=== PATIENT | male | born 1975 | race African-American/Black ===

== ENCOUNTER 2021-01-04 19:27 | Inpatient (IN) | payer OTHER ==
[~2021-01-04 19:27] MED LIST: Iopamidol-370 76% 500 ML 1 ML ONE
[2021-01-04] MEDS ORDERED: Aspirin 325 MG TAB ONE (19:58)
[2021-01-04 20:01] LABS: Hemoglobin 13.9 g/dL (14.0-18.0); Mean Corpuscular HGB CONC 34.4 g/dL (32.0-36.0); Mean Corpuscular Hemoglobin 31.3 pg (27.0-31.0); Mean Corpuscular Volume 91.1 fL (78.0-98.0); RBC Distribution Width 12.9 % (11.5-14.5); Red Blood Cell (RBC) Count 4.44 mill/uL (4.70-6.10)
[2021-01-04 20:08] LABS: PTT 28.1 sec (22.9-36.1); Prothrombin Time 13.5 sec (12.0-14.7)
[2021-01-04 20:18] LABS: ALT (SGPT) 21 U/L (8-55); AST (SGOT) 32 U/L (5-34); Albumin 4.2 g/dL (3.5-5.0); Alkaline Phosphatase 61 U/L (40-110); Anion Gap 23 mmol/L (10-20); BUN (Urea Nitrogen) 15 mg/dL (8.9-20.6); Bilirubin, Total 0.3 mg/dL (0.2-1.2); Calc. Creatinine Clearance 0 mL/min (70-130); Calcium 8.9 mg/dL (7.8-10.44); Carbon Dioxide 12 mmol/L (22-29); Chloride 106 mmol/L (98-107); Globulin 3.6 g/dL (2.4-3.5); Glucose 99 mg/dL (70-105); Potassium 4.6 mmol/L (3.5-5.1); Protein, Total 7.8 g/dL (6.0-8.3); Sodium 136 mmol/L (136-145)
[2021-01-04 20:45] LABS: Mean Platelet Volume 9.4 fL (7.4-10.4); Platelet Count 183 thou/uL (130-400); White Blood Cell (WBC) Count 8.6 thou/uL (4.8-10.8)
[2021-01-04 20:46] LABS: Band 2 % (5-11); Eosinophils 2 % (0-10); Lymphocytes 63 % (21-51); MDiff Complete? YES; Monocytes 10 % (0-10); Neutrophil 23 % (42-75)
[2021-01-04] MEDS ORDERED: Ondansetron PF 4 MG/2 ML Vial IVP PRN (21:50)
[2021-01-04] MEDS ORDERED: Loperamide HCl 2 MG CAP PO PRN (21:50)
[2021-01-04] MEDS ORDERED: Guaifenesin DM 100-10/5 ML UDCUP PO PRN (21:50)
[2021-01-04] MEDS ORDERED: Calcium Carbonate 500 MG ChewTAB PO PRN (21:50)
[2021-01-04] MEDS ORDERED: HYDROcodone/Acetaminophen 5/325 mg Tablet PO PRN (21:50)
[2021-01-04] MEDS ORDERED: Acetaminophen 325 MG TAB PO PRN (21:50)
[2021-01-04] MEDS ORDERED: Bisacodyl 10 MG SUPP PR PRN (21:50)
[2021-01-04] MEDS ORDERED: Ondansetron ODT 4 MG TAB PO PRN (21:50)
[2021-01-04] MEDS ORDERED: Senokot S 8.6-50 MG TAB PO PRN (21:50)
[2021-01-04] MEDS ORDERED: hydrALAZINE 20 MG/ML VIAL SLOW IVP PRN (21:51)
[2021-01-04 22:43] LABS: SARS-CoV-2 NAA Rapid Test Not Detected (NotDetected)
[2021-01-04] MEDS ORDERED: Lorazepam 2 MG/ML VIAL ONE (22:51)
[2021-01-05] VITALS: BMI 33.2
[2021-01-05 04:11] LABS: #Basophils 0.1 thou/uL (0.0-0.2); #Lymphocytes 2.3 thou/uL (1.20-3.40); #Monocytes 0.6 thou/uL (0.11-0.59); #Neutrophils 7.6 thou/uL (1.40-6.50); %Basophils 0.8 % (0.0-1.0); %Eosinophils 0.3 % (0.0-10.0); %Lymphocytes 21.8 % (21.0-51.0); %Monocytes 5.2 % (0.0-10.0); %Neutrophils 71.9 % (42.0-75.0); Hemoglobin 13.8 g/dL (14.0-18.0); Mean Corpuscular HGB CONC 34.6 g/dL (32.0-36.0); Mean Corpuscular Volume 89.5 fL (78.0-98.0); Mean Platelet Volume 8.6 fL (7.4-10.4); Platelet Count 191 thou/uL (130-400); RBC Distribution Width 12.7 % (11.5-14.5); Red Blood Cell (RBC) Count 4.46 mill/uL (4.70-6.10); White Blood Cell (WBC) Count 10.5 thou/uL (4.8-10.8)
[2021-01-05 04:21] LABS: Prothrombin Time 13.4 sec (12.0-14.7)
[2021-01-05 04:30] LABS: Anion Gap 13 mmol/L (10-20); BUN (Urea Nitrogen) 13 mg/dL (8.9-20.6); Calc. Creatinine Clearance 152 mL/min (70-130); Calcium 9.3 mg/dL (7.8-10.44); Carbon Dioxide 22 mmol/L (22-29); Cardiac Risk 3.1 (Less than 4.5); Chloride 102 mmol/L (98-107); Cholesterol 132 mg/dl (< 200 Desired); Glucose 123 mg/dL (70-105); HDL Cholesterol 43 mg/dL (>60 Neg Risk); LDL Cholesterol, Calculated 76 mg/dL; Potassium 3.7 mmol/L (3.5-5.1); Sodium 133 mmol/L (136-145); Triglycerides 65 mg/dL (Less than 150)
[2021-01-05 04:51] LABS: Syphilis Antibody Nonreactive (Nonreactive); Syphilis Antibody Index 0.04 S/CO (<1.00 Non-Reactive)
[2021-01-05] MEDS: Famotidine 20 MG TAB PO SCH ×2 (10:17→19:52)
[2021-01-05] MEDS: Clopidogrel Bisulfate 75 MG TAB PO SCH (10:17)
[2021-01-05] MEDS: Aspirin 325 mg Enteric Coated Tablet PO SCH (10:17)
[2021-01-05] MEDS: Enoxaparin Sodium 40 MG/0.4 ML SYRINGE SC SCH (10:20)
[2021-01-05 10:22] LABS: Medtox Reader # READER 4; THC/Cannabinoid Screen Detected (NotDetected)
[2021-01-05 10:23] LABS: Amphetamine Not Detected (NotDetected); Barbiturates Screen Not Detected (NotDetected); Benzodiazepine Screen Detected (NotDetected); Cocaine Metabolite Screen Not Detected (NotDetected); Medtox Control Line Valid? VALID (VALID); Methadone Not Detected (NotDetected); Methamphetamine Not Detected (NotDetected); Opiate Screen Not Detected (NotDetected); Oxycodone Screen Not Detected (NotDetected); Phencyclidine (PCP) Not Detected (NotDetected); Tricyclic Screen Not Detected (NotDetected)
[2021-01-05 10:41] LABS: PTT 30.9 sec (22.9-36.1); Prothrombin Time 13.5 sec (12.0-14.7)
[2021-01-05 10:42] LABS: D-Dimer Test 0.36 *mcg/mL (0.27-0.43)
[2021-01-05] MEDS: levETIRAcetam in NS 1,000 MG in Premix Bag 1 BAG IVPB SCH ×2 (11:50→19:52)
[2021-01-05] MEDS: Atorvastatin Calcium 40 MG TAB PO SCH (19:52)
[2021-01-06 06:06] VITALS: BP 126/69
[2021-01-06] MEDS: Clopidogrel Bisulfate 75 MG TAB PO SCH (08:31)
[2021-01-06] MEDS: Citalopram 20 MG TAB PO SCH (08:31)
[2021-01-06] MEDS: Famotidine 20 MG TAB PO SCH (08:31)
[2021-01-06] MEDS: Aspirin 325 mg Enteric Coated Tablet PO SCH (08:31)
[2021-01-06] MEDS: Enoxaparin Sodium 40 MG/0.4 ML SYRINGE SC SCH (08:32)
[2021-01-06] MEDS: levETIRAcetam in NS 1,000 MG in Premix Bag 1 BAG IVPB SCH ×2 (08:32→21:52)
[2021-01-06] MEDS: Carvedilol 25 MG TAB PO SCH ×2 (08:33→21:37)
[2021-01-06] MEDS ORDERED: Atorvastatin Calcium 20 MG TAB PO SCH (09:00)
[2021-01-06] MEDS: Amlodipine 5 MG TAB PO SCH (10:26)
[2021-01-06] MEDS: Atorvastatin Calcium 40 MG TAB PO SCH (21:52)
[2021-01-07 07:34] VITALS: TEMP 97.8
[2021-01-07] MEDS: Carvedilol 25 MG TAB PO SCH (09:52)
[2021-01-07] MEDS: Amlodipine 5 MG TAB PO SCH (09:52)
[2021-01-07] MEDS: Citalopram 20 MG TAB PO SCH (09:52)
[2021-01-07] MEDS: Aspirin 325 mg Enteric Coated Tablet PO SCH (09:52)
[2021-01-07] MEDS: Clopidogrel Bisulfate 75 MG TAB PO SCH (09:52)
[2021-01-07] MEDS: Enoxaparin Sodium 40 MG/0.4 ML SYRINGE SC SCH (09:52)
[2021-01-07] MEDS: levETIRAcetam in NS 1,000 MG in Premix Bag 1 BAG IVPB SCH ×2 (09:53→10:03)
[2021-01-08 11:01] LABS: Protein C Activity 125 % (78-152)
[2021-01-08 11:02] LABS: Factor VIII Test 169.5 % ACTIVE (56-157)
[2021-01-09 11:01] LABS: HEX PHOS LA Tube 1 43.5 SEC; HEX PHOS LA Tube 2 41.5 SEC; Hexagonal Phospholipid Neut 2.1 SEC (0-8.0)
[2021-01-09 14:30] LABS: ANA Symphony (Qualitative) Negative (Negative); ANA Symphony (Quantitative) 0.2 Ratio (< 0.7 Negative); dsDNA IgG Antibody 0.7 IU/mL (<10 Negative)
[2021-01-09 16:22] LABS: Cardiolipin IgA Ab 5.7 APL-U/mL (<14 Negative); Cardiolipin IgG Ab 1.1 GPL-U/mL (<10 Negative); Cardiolipin IgM Ab 4.7 MPL-U/mL (<10 Negative); EliA APS New Method **** NEW METHOD ****
== END 2021-01-07 11:16 | disposition home or self-care (01) | DRG 69 ==
LOC: ERS 19:27 → IMCU/EMU 20:52
PROVIDERS: ADMIT Internal Medicine; ATTEND Internal Medicine
DX: G45.9 Transient cerebral ischemic attack, unspecified (principal); G81.91 Hemiplegia, unspecified affecting right dominant side; Z20.822 Contact with and (suspected) exposure to COVID-19; G40.409 Other generalized epilepsy and epileptic syndromes, not intractable, without status epilepticus; E78.5 Hyperlipidemia, unspecified; I10 Essential (primary) hypertension; R29.810 Facial weakness; R47.81 Slurred speech; R47.1 Dysarthria and anarthria; E66.9 Obesity, unspecified; G89.29 Other chronic pain; Z68.33 Body mass index [BMI] 33.0-33.9, adult; Z79.899 Other long term (current) drug therapy
CPT/HCPCS: 36415; 36416; 70450; 70496; 70498; 70551; 71045; 80048; 80053; 80061; 80306; 83090; 85025; 85240; 85300; 85303; 85305; 85307; 85379; 85598; 85610; 85652; 85730; 86038; 86147; 86225; 86780; 93005; 93306; 95712; 95819; 95957; 96374; J1650; J1953; J2060; J2997; Q9967; U0002